=== PATIENT | female | born 1960 | race Two or more races ===

== ENCOUNTER 2016-11-07 18:26 | Emergency (ER) | payer MEDICAID ==
[2016-11-07 18:38] VITALS: TEMP 98.1
[2016-11-07] MEDS ORDERED: LORazepam 1 MG TAB PO ONE (19:03)
[2016-11-07] MEDS ORDERED: LORAZEPAM 1 MG PREPACK#4 BTL TAKEHOME ONE (19:07)
--- NOTE | 2016-11-07 19:07 | EDPHY ---
H & P Stated Complaint: noted to have elevated bp at formerly [facility]/anxiety Time Seen by Provider: 11/07/16 18:30 HPI/ROS: CHIEF COMPLAINT: Referred to ED for elevated blood pressure, patient complains of anxiety HISTORY OF PRESENT ILLNESS: The patient presents the emergency department after she was referred here by [facility] for elevated blood pressure. The patient was at [facility] requesting a refill of her Ativan. She reports she is currently having anxiety over problems with her daughter. She typically uses Ativan on an as-needed basis but ran out. The patient reportedly had a elevated blood pressure at [facility] but was uncertain of what the reading was. She denies any chest pain, shortness of breath, numbness, weakness or other concerns. The patient denies suicidal or homicidal ideation. The patient denies prior history of hypertension. She does use lorazepam on an as-needed basis. REVIEW OF SYSTEMS: A comprehensive 10 point review of systems is otherwise negative aside from elements mentioned in the history of present illness. Source: Patient Exam Limitations: No limitations - Personal History Current Tetanus/Diphtheria Vaccine: Yes - Medical/Surgical History Hx Asthma: Yes Hx Chronic Respiratory Disease: No Hx Diabetes: No Hx Cardiac Disease: No Hx Renal Disease: No Hx Cirrhosis: No Hx Alcoholism: No Hx HIV/AIDS: No Hx Splenectomy or Spleen Trauma: No Other PMH: gallbladder. hysterectomy. l knee surgery x 3. htn - Social History Smoking Status: Never smoked - Physical Exam Exam: General Appearance: Anxious, no acute distress Eyes: Pupils equal and round no pallor or injection ENT, Mouth: Mucous membranes moist Respiratory: There are no retractions, lungs are clear to auscultation Cardiovascular: Regular rate and rhythm Gastrointestinal: Abdomen is soft and nontender, no masses, bowel sounds normal Neurological: A&O, normal motor function, normal sensory exam, normal cranial nerves Skin: Warm and dry, no rashes Musculoskeletal: Neck is supple nontender Extremities: symmetrical, full range of motion Psychiatric: Anxious, denies suicidal or homicidal ideation Constitutional: Initial Vital Signs Temperature (C) 36.7 C 11/07/16 18:36 Heart Rate 109 H 11/07/16 18:36 Respiratory Rate 22 H 11/07/16 18:36 Blood Pressure 127/90 H 11/07/16 18:36 O2 Sat (%) 94 11/07/16 18:36 O2 Delivery Mode Room Air Allergies/Adverse Reactions: Penicillins Allergy (Verified 11/07/16 18:35) contrast dye Allergy (Uncoded 07/25/16 14:04) Home Medications: Medication Instructions Recorded Hydrochlorothiazide 03/16/16 LORAZEPAM 03/16/16 Lisinopril 03/16/16 Omeprazole [Prilosec 20 mg] 20 mg PO DAILY 03/16/16 Synthroid 03/16/16 LORazepam [Ativan (RX)] 1 mg PO Q12 PRN #10 tab 07/25/16 Pantoprazole Sodium [Protonix 40mg 40 mg PO DAILY #20 tab 07/25/16 (*)] Promethazine HCl [Phenergan Rectal] 25 mg ID Q6 PRN #10 suppr 07/25/16 Medical Decision Making ED Course/Re-evaluation: Patient's blood pressure is 129/70. Her neurologic examination is normal. She presents to the ED with situational anxiety. The patient was given 1 mg Ativan tablet. She will be given a short course of Ativan until she can get in to see her therapist this week. The patient has no evidence of a hypertensive emergency or urgency. Departure - Departure Disposition: Home, Routine, Self-Care Clinical Impression: Anxiety Condition: Good Instructions: Anxiety (ED) Additional Instructions: 1. Use Ativan as needed for anxiety. 2. Please follow up with your therapist at [facility] for a refill of your regular medications. 3. Please return to the ED for worsening symptoms, headache, chest pain, difficulty breathing, suicidal thoughts, worsening anxiety or other concerns. Referrals: [facility] [Outside] - As per Instructions
[2016-11-07 19:19] VITALS: BP 141/92; PULSE 98; RESP 16; O2SAT 92
== END 2016-11-07 19:19 | disposition home or self-care (01) ==
DX: F41.9 Anxiety disorder, unspecified (principal); J45.909 Unspecified asthma, uncomplicated; I10 Essential (primary) hypertension